=== PATIENT | female | born 1965 | race Caucasian/White ===

== ENCOUNTER 2017-01-22 06:50 | Day surgery (SDC) | payer MEDICARE ==
[2017-01-21 14:41] VITALS: BMI 37.2
[2017-01-22] MEDS ORDERED: CEFAZOLIN/Water 2 GM/20 ML SYRINGE ONE (07:23)
[2017-01-22 07:51] LABS: Hematocrit 46.4 % (36.0-47.0); Mean Platelet Volume 6.9 fL (7.4-10.4); Red Blood Cell (RBC) Count 5.27 mill/uL (4.20-5.40); White Blood Cell (WBC) Count 6.7 thou/uL (4.8-10.8)
[2017-01-22 08:09] LABS: Anion Gap 11 mmol/L (10-20); BUN (Urea Nitrogen) 21 mg/dL (7.0-18.7); Calc. Creatinine Clearance 147 mL/min (70-130); Calcium 9.5 mg/dL (7.8-10.44); Carbon Dioxide 27 mmol/L (22-29); Chloride 105 mmol/L (98-107); Estimated GFR-MDRD 90
[2017-01-22] MEDS ORDERED: Diprivan 20 ML ONE (08:21)
[2017-01-22] MEDS ORDERED: Fentanyl 100 MCG/2 ML VIAL ONE ×3 (08:42→10:10)
--- NOTE | 2017-01-22 09:46 | OP ---
DATE OF PROCEDURE: 01/22/2017 PREOPERATIVE DIAGNOSIS: Left knee posterior horn medial meniscus tear. POSTOPERATIVE DIAGNOSES: 1. Left knee posterior horn medial meniscus tear. 2. Multiple grade 3 and grade 4 lesions on the medial femoral condyle. Each of these were contained , but again affecting multiple areas. PROCEDURES: 1. Left knee arthroscopy with partial medial meniscectomy. 2. Debridement and shaving of unstable chondral flaps. SURGEON: Karsten Denney M.D. ASSISTANTS: None. BLOOD LOSS: Minimal. COMPLICATIONS: None. ANESTHESIA: She had general anesthetic, she also had local knee block. CONDITION: She went to the recovery room in stable condition. INDICATIONS: A 51-year-old female who comes in complaining of left knee pain, swelling, and catching . She has failed nonoperative treatment and at this time opted to have surgery. OPERATIVE PROCEDURE: After all appropriate consent forms were explained and signed, she was taken to the operating room and at this time was given general anesthetic. Once anesthesia was appropriate, the tourniquet was placed on the left thigh and leg was placed in an arthroscopic leg garcia. The pa tient prepped and draped in standard surgical fashion. Limb was exsanguinated and tourniquet was silvestre en up to 300 mmHg. An inferolateral portal was established and the scope was placed into the knee karin int. A needle localization technique was then used and it did make a medial working portal. Diagnos tic arthroscopy commenced in the notch. ACL and PCL were probed and found to be intact. The medial compartment was found to have a posterior horn medial meniscus tear as well as grade 3 and 4 lesions of the medial femoral condyle. Does have small unstable chondral flaps which was debrided and a part ial meniscectomy was performed using meniscal biter and shaver. Lateral compartment was found to be in excellent condition. The gutters were swept through and no loose bodies were noted and the patell ofemoral joint was also found to be in overall good condition. At this time, scope was removed, the knee was drained. Portals closed with simple nylon stitch. A bulky sterile dressing was applied and the tourniquet was let down. Toes pinked up nicely. The patient was awakened and taken to the marie very room in stable condition. All counts were correct at the end of the case. She received preoper ative IV antibiotics.
[2017-01-22] MEDS ORDERED: Ketorolac Tromethamine 30 MG/ML VIAL ONE (10:01)
[2017-01-22] MEDS ORDERED: Lidocaine 2% w/Epinephrine 1:200K 20 ML VIAL ONE (15:03)
[2017-01-22] MEDS ORDERED: Bupivacaine PF 0.5% 30 ML VIAL ONE (15:03)
[2017-01-22] MEDS ORDERED: Ondansetron HCl/PF 4 MG/2 ML Vial ONE (15:24)
[2017-01-22] MEDS ORDERED: PHENYLEPHRINE-NS 100 MCG/ML 10 ML SYRINGE ONE (15:24)
[2017-01-22] MEDS ORDERED: Propofol 200 MG/20 ML VIAL ONE (15:24)
[2017-01-22] MEDS ORDERED: Lidocaine 1% PF 5 ML VIAL ONE (15:24)
== END 2017-01-22 12:15 | disposition home or self-care (01) ==
LOC: SDC 06:50
PROVIDERS: ATTEND Orthopaedic Surgery
PROC: 0SBD4ZZ Excision of Left Knee Joint, Percutaneous Endoscopic Approach (ICD-10-PCS; principal; 2017-01-22)
DX: S83.242A Other tear of medial meniscus, current injury, left knee, initial encounter (principal); M94.8X9 Other specified disorders of cartilage, unspecified sites; Z98.51 Tubal ligation status
CPT/HCPCS: 29881; 80048; 85027; 96374; 97116; 97139; G8978; G8979; G8980; J1885; J2001; J2405; J2704; J3010; S0020